=== PATIENT | male | born 1990 | race Caucasian/White ===

== ENCOUNTER 2016-06-21 15:53 | Emergency (ER) | payer OTHER ==
[~2016-06-21] VITALS: Ht 167.6 cm; Wt 86.2 kg
[2016-06-21 21:10] VITALS: BP 106/58
== END 2016-06-21 21:12 ==
LOC: ER 15:53
DX: S02.2XXA Fracture of nasal bones, initial encounter for closed fracture (principal); S00.212A Abrasion of left eyelid and periocular area, initial encounter; S00.81XA Abrasion of other part of head, initial encounter; F10.129 Alcohol abuse with intoxication, unspecified; W18.39XA Other fall on same level, initial encounter; Y93.89 Activity, other specified; Y92.89 Other specified places as the place of occurrence of the external cause; Y99.9 Unspecified external cause status